=== PATIENT | male | born 1960 | race Caucasian/White ===

== ENCOUNTER 2021-04-13 09:57 | Emergency (ER) | payer MEDICARE ==
[2021-04-13 10:22] LABS: HEMOGLOBIN 17.3 gm/dl (14.0-17.5); RED BLOOD COUNT 5.33 M/UL (4.20-5.50); WHITE BLOOD COUNT 9.8 K/UL (4.5-11.0)
[2021-04-13 11:17] LABS: BUN/CREATININE RATIO 21 (0-10)
[2021-04-13] MEDS ORDERED: BACTRIM DS TAB1 EACH PO (12:22)
[2021-04-13] MEDS ORDERED: CEPHALEXIN500 M1 PO (12:22)
== END 2021-04-13 12:32 | disposition home or self-care (01) ==
LOC: ER1 09:57
PROVIDERS: Emergency Medicine
DX: S90.851A Superficial foreign body, right foot, initial encounter (principal); E11.9 Type 2 diabetes mellitus without complications; W45.8XXA Other foreign body or object entering through skin, initial encounter; Y92.009 Unspecified place in unspecified non-institutional (private) residence as the place of occurrence of the external cause
CPT/HCPCS: 73620; 80053; 85025; 85652; 86140; 96374; 99283; J3370; J7030